=== PATIENT | male | born 1975 | race Hispanic/Latino ===

== ENCOUNTER 2022-01-10 14:58 | Emergency (ER) | payer BC ==
[~2022-01-10] VITALS: Ht 160 cm; Wt 95.7 kg
[2022-01-10] MEDS ORDERED: FAMOTIDINE 20MG VIAL IV ONE (15:30)
[2022-01-10] MEDS ORDERED: KETOROLAC 30MG VIAL (30MG/ML) IVP ONE (15:30)
[2022-01-10 15:36] LABS: BASOPHILS % (AUTO) 0.5 % (0.0-5.0); EOSINOPHILS % (AUTO) 0.7 % (0.0-8.0); LYMPHOCYTES % (AUTO) 13.3 % (21.0-51.0); MEAN CORPUSCULAR VOLUME 86.3 fL (79-99); MONOCYTES % (AUTO) 6.8 % (3.0-13.0); NEUTROPHILS % (AUTO) 78.2 % (40.0-77.0); PLATELET COUNT (AUTO) 310 K/uL (130-400); RED BLOOD CELL COUNT(AUTO) 4.66 MIL/uL (4.50-6.20); WHITE BLOOD COUNT (AUTO) 16.6 K/uL (4.8-10.8)
[2022-01-10 16:27] LABS: APPEARANCE,URINE Clear (CLEAR); BILIRUBIN,URINE Negative (NEGATIVE); COLOR,URINE Dark Yellow (YELLOW); GLUCOSE, URINE (UA) >=1000 mg/dL (NEGATIVE); KETONES,URINE >=160 mg/dL (NEGATIVE); LEUKOCYTE ESTERASE ,URINE Negative (NEGATIVE); NITRATE,URINE Negative (NEGATIVE); OCCULT BLOOD,URINE Nonhemolyzed Trace (NEGATIVE); PH,URINE 5.5 (5.0-8.0); PROTEIN,URINE 300 mg/dL (NEGATIVE)
[2022-01-10 16:35] LABS: AMPHET/METH SCREEN,URINE NEGATIVE (NEGATIVE); BARBITURATE SCREEN, URINE NEGATIVE (NEGATIVE); BENZODIAZEPINES SCREEN,URINE NEGATIVE (NEGATIVE); CANNABINOID SCREEN,URINE NEGATIVE (NEGATIVE); COCAINE SCREEN,URINE NEGATIVE (NEGATIVE); OPIATE SCREEN,URINE NEGATIVE (NEGATIVE); PHENCYCLIDINE SCREEN,URINE NEGATIVE (NEGATIVE)
[2022-01-10 16:37] LABS: ALBUMIN 3.5 g/dL (3.5-5.0); CREATININE 0.6 mg/dL (0.5-1.5); POTASSIUM 3.7 mmol/L (3.5-5.1); TOTAL PROTEIN, SERUM 7.5 g/dL (6.0-8.3)
[2022-01-10 16:42] LABS: MEAN CORPUSCULAR HEMOGLOBIN 34.7 pg (27.0-33.0)
[2022-01-10 17:20] LABS: BACTERIA,URINE Few /HPF (None Seen); RBC,URINE 0-1 /HPF (0-1); SQUAMOUS EPITHELIAL CELL,UR Rare /HPF (0-2); WBC,URINE 0-1 /HPF (0-1)
[2022-01-10] MEDS ORDERED: IBUP-1493 PO (17:34)
[2022-01-10] MEDS ORDERED: METH-662 PO (17:34)
[2022-01-10 17:40] VITALS: BP 154/81
== END 2022-01-10 17:58 | disposition home or self-care (01) ==
LOC: EDH 14:58
DX: M79.10 Myalgia, unspecified site (principal); M54.9 Dorsalgia, unspecified; R94.31 Abnormal electrocardiogram [ECG] [EKG]; E11.9 Type 2 diabetes mellitus without complications; E78.00 Pure hypercholesterolemia, unspecified; F17.200 Nicotine dependence, unspecified, uncomplicated; Z79.1 Long term (current) use of non-steroidal anti-inflammatories (NSAID)
CPT/HCPCS: 99284; 96374; 71045; 96375; 82550; 84484; 80053; 80305; 85025; 36415; 93005; 81001; J3490; J1885